=== PATIENT | male | born 1950 | race Caucasian/White ===

== ENCOUNTER 2021-09-11 12:28 | Emergency (ER) | payer MEDICARE, BC ==
[2021-09-11 15:19] LABS: HEMOGLOBIN 14.7 gm/dl (14.0-17.5); RED BLOOD COUNT 4.65 M/UL (4.20-5.50); WHITE BLOOD COUNT 5.7 K/UL (4.5-11.0)
== END 2021-09-11 14:40 | disposition home or self-care (01) ==
LOC: ER1 12:28
PROVIDERS: Physician Assistant Medical
DX: R79.9 Abnormal finding of blood chemistry, unspecified (principal); E11.9 Type 2 diabetes mellitus without complications; I10 Essential (primary) hypertension; J44.9 Chronic obstructive pulmonary disease, unspecified; Z88.2 Allergy status to sulfonamides; Z88.0 Allergy status to penicillin
CPT/HCPCS: 80053; 82550; 82553; 84484; 85025; 93005; 99283

== ENCOUNTER → 2021-12-24 | Day surgery (SDC) | payer MEDICARE, BC ==
[~2021-12-24] MED LIST: AMLODIPINE BESYL5 MG PO; CARVEDILOL25 MG PO; FLONASE ALLER15.8 ML INH; GARLIC; HYDRALAZINE HC100 MG PO; LOPID600 MG PO; METFORMIN HCL500 MG PO; MULTI-VITAMIN1 EACH PO; PRAVASTATIN SOD20 MG PO; VALTREX1000 MG PO; VAZALORE81 MG PO; [UNRECOGNIZED DRUG - OTHER]
== END | disposition home or self-care (01) ==
LOC: OR 06:52
DX: K92.1 Melena (principal); K63.3 Ulcer of intestine; K57.30 Diverticulosis of large intestine without perforation or abscess without bleeding; Z80.0 Family history of malignant neoplasm of digestive organs; I10 Essential (primary) hypertension; E78.5 Hyperlipidemia, unspecified; E11.9 Type 2 diabetes mellitus without complications; J44.9 Chronic obstructive pulmonary disease, unspecified; Z87.891 Personal history of nicotine dependence; Z88.2 Allergy status to sulfonamides; Z88.8 Allergy status to other drugs, medicaments and biological substances; Z79.82 Long term (current) use of aspirin; Z79.899 Other long term (current) drug therapy
CPT/HCPCS: 82962; 88342; J2704